=== PATIENT | male | born 1945 | race Caucasian/White ===

== ENCOUNTER 2017-02-18 21:01 | Emergency (ER) | payer OTHER ==
[2017-02-18 21:43] VITALS: BP 113/66; PULSE 90; TEMP 98.9; BMI 28.5
== END 2017-02-18 22:30 | disposition left against medical advice (07) ==
LOC: JER 21:01
DX: Z53.21 Procedure and treatment not carried out due to patient leaving prior to being seen by health care provider (principal)
CPT/HCPCS: 99283-25

== ENCOUNTER → 2017-02-18 | Emergency (ER) | payer OTHER ==
[2017-02-18 18:32] VITALS: BP 132/64; TEMP 97.5; BMI 29.5
[2017-02-18 19:02] LABS: ARTERIAL BLD GAS O2 SATURATION 85.7 % (90-98.9); ARTERIAL BLOOD GAS BASE EXCESS -0.3 meq/l (-2-2); ARTERIAL BLOOD GAS HCO3 22.7 meq/L (22-26); ARTERIAL BLOOD GAS PO2 51.4 mmHg (70-100); ARTERIAL BLOOD GAS pH 7.46 (7.35-7.45)
[2017-02-18 19:03] LABS: ALLENS TEST POSITIVE; ART PUNCT SITE LEFT RADIAL; LPM/O2% 4 LPM; PT. ON O2? yes; TYPE OF O2 nasal cannula
[2017-02-18 19:04] LABS: METHEMOGLOBIN 0.5 % (0.4-1.5)
[2017-02-18 19:08] LABS: MCH 27.8 pg (25.7-33.7); MCHC 32.4 g/dl (32.0-35.9); MEAN CELL VOLUME 85.7 fl (80-96); MEAN PLT VOLUME 8.4 fl (7.5-11.1); PLATELET COUNT 189 K/MM3 (134-434); RDW 21.7 % (11.9-15.9); WHITE BLOOD COUNT 13.4 K/mm3 (4.0-10.0)
[2017-02-18 19:13] VITALS: PULSE 84
[2017-02-18 19:23] LABS: INR 1.1 (0.82-1.09); PROTHROMBIN TIME (PATIENT) 12.1 SEC (9.98-11.88)
[2017-02-18 19:46] LABS: ALBUMIN 2.6 g/dl (3.4-5.0); ANION GAP 9 (8-16); BILIRUBIN,TOTAL 1.2 mg/dL (0.2-1.0); CALCIUM 8.6 mg/dL (8.5-10.1); CO2 26 mmol/L (21-32); CREATININE 1.3 mg/dL (0.7-1.3); GLUCOSE,RANDOM 103 mg/dL (74-106); SGOT/AST 57 U/L (15-37); SGPT/ALT 58 U/L (12-78)
[2017-02-18 19:49] LABS: ALK PHOS 152 U/L (45-117); TROPONIN I < 0.02 ng/ml (0.00-0.05)
--- NOTE | 2017-02-18 20:00 | PDOC ---
History of Present Illness - History of Present Illness Initial Comments: 02/19/17 00:11 Patient is a 71 year old male with significant medical hx of stage IV lung CA, currently undergoing chemotherapy biweekly, several transfusions in the past, who is presenting to the ED with an episode of transient generalized weakness this afternoon. Today the patient went off to do a few errands, including grocery shopping, and felt generally weak when he returned home. He was greeted by family members who state that the patient didnt want to walk up stairs or make conversation. Family member notes the patient usually takes someone to run errands with for help. After the patient returned, family members called EMS, and he states that he felt better once the ambulance arrived. Patient notes his episode of weakness lasted for approximately 5-10 minutes. The patient also endorses some right shoulder/upper back pain that has resolved. Denies any fever , chills, nausea, cough, vomiting, chest pain, diaphoresis, palpitations, vertigo, dizziness. Pt denies any current complaints. The patient is chronically on O2 at night and carries portable O2 with him at all times but sometimes is noncomplaint. Last chemo treatment was last week and reportedly a stronger dose than previous treatments. <Damaris Garner - Last Filed: 02/19/17 00:11> <Jarred Bethea - Last Filed: 02/22/17 07:42> - General Chief Complaint: Respiratory Stated Complaint: SHORTNESS OF BREATH Time Seen by Provider: 02/18/17 19:43 Past History <Damaris Garner - Last Filed: 02/19/17 00:11> - Past Medical History Cancer: Yes (lung) Other medical history: ITP - Psycho/Social/Smoking Cessation Hx Suicidal Ideation: No Smoking History: Former smoker Have you smoked in the past 12 months: No Number of Cigarettes Smoked Daily: 24 Information on smoking cessation initiated: No Hx Alcohol Use: No Drug/Substance Use Hx: No <Jarred Bethea - Last Filed: 02/22/17 07:42> - Past Medical History Allergies/Adverse Reactions: Allergies Allergy/AdvReac Type Severity Reaction Status Date / Time No Known Allergies Allergy Verified 02/18/17 19:04 Home Medications: Ambulatory Orders Danazol [Danocrine -] 100 mg PO BID 02/18/17 Docusate Sodium [Colace -] 1 tab PO DAILY 02/18/17 FENTANYL 75mcg PATCH [DURAGESIC 75mcg PATCH -] 1 each TD Q72H 02/18/17 Gabapentin [Neurontin] 100 mg PO TID 02/18/17 Oxycodone HCl 5 mg PO PRN 02/18/17 Review of Systems - Review of Systems Comments:: 02/19/17 00:12 CONSTITUTIONAL: Present: Generalized Weakness No reported: Fever, Chills, Diaphoresis, Malaise, Loss of Appetite HEENT: No reported: Rhinorrhea, Nasal Congestion, Throat Pain, Throat Swelling, Difficulty Swallowing, Mouth Swelling, Ear Pain, Eye Pain, Visual Changes CARDIOVASCULAR: No reported: Chest Pain, Syncope, Palpitations, Irregular Heart Rate, Lightheadedness, Peripheral Edema RESPIRATORY: No reported: Cough, Shortness of Breath, SOB with Exertion, Orthopnea, Wheezing , Stridor, Hemoptysis GASTROINTESTINAL: No reported: Abdominal pain, Abdominal Distension, Nausea, Vomiting, Diarrhea, Constipation, Melena, Hematochezia GENITOURINARY: No reported: Dysuria, Frequency, Urgency, Hesitancy, Flank Pain, Genital Pain MUSCULOSKELETAL: Present: Right Shoulder/Right Upper Back Pain No reported: Myalgia, Arthralgia, Joint Swelling, Neck Pain SKIN: No reported: Rash, Itching, Pallor HEMEATOLOGIC/IMMUNOLOGIC: No reported: Easy Bleeding, Easy Bruising, Lymphadenopathy, Frequent infections ENDOCRINE: No reported: Unexplained Weight Gain, Unexplained Weight Loss, Heat Intolerance , Cold Intolerance NEUROLOGIC: No reported: Headache, Focal Weakness, Paresthesias, Vertigo, Lightheadedness, Unsteady Gait, Seizure, Mental Status Changes, Incontinence PSYCHIATRIC: No reported: Anxiety, Depression <Patsy,Damaris - Last Filed: 02/19/17 00:11> *Physical Exam - Vital Signs Last Vital Signs Temp Pulse Resp BP Pulse Ox 97.5 F L 84 22 132/64 90 L 02/18/17 18:27 02/18/17 19:11 02/18/17 18:27 02/18/17 18:27 02/18/17 19:11 - Physical Exam Comments: 02/19/17 00:12 GENERAL: The patient is awake, alert, and fully oriented, Nontoxic - in no acute distress. HEAD: Normocephalic, atraumatic. EYES: extraocular movements intact, sclera anicteric, conjunctiva clear. ENT: Normal voice, Moist mucous membranes. NECK: Normal range of motion, supple LUNGS: b/l lungs clear, no rales or wheezing, no dyspnea HEART: Regular rate and rhythm, without murmur, rub or gallop. ABDOMEN: Soft, nontender, normoactive bowel sounds. No guarding, no rebound.No CVA tenderness EXTREMITIES: Normal range of motion, no edema. NEUROLOGICAL: No facial assymetry, Normal speech, PSYCH: Normal mood, normal affect. SKIN: Warm, Dry, normal turgor <Patsy,Damaris - Last Filed: 02/19/17 00:11> - Vital Signs Last Vital Signs Temp Pulse Resp BP Pulse Ox 97.5 F L 84 22 132/64 90 L 02/18/17 18:27 02/18/17 19:11 02/18/17 18:27 02/18/17 18:27 02/18/17 19:11 <Jarred Bethea - Last Filed: 02/22/17 07:42> Heart Score/ECG Review - ECG Impressions Comment:: Twelve-lead EKG was performed and reviewed by me. There is normal sinus rhythm with a normal rate. Rate of 88 The axis is normal. The intervals are normal. There is normal R wave progression There are no ST or T wave abnormalities. Impression: Normal twelve-lead EKG <Jarred Bethea - Last Filed: 02/22/17 07:42> ED Treatment Course - LABORATORY CBC & Chemistry Diagram: 02/18/17 19:00 02/18/17 19:00 - ADDITIONAL ORDERS Additional order review: Laboratory Results 02/18/17 02/18/17 02/18/17 19:00 19:00 18:50 INR 1.10 Puncture Site ABG pH ABG pCO2 at Pt Temp ABG pO2 at Pt Temp ABG HCO3 ABG O2 Sat (Measured) ABG O2 Content ABG Base Excess Miguel Test Carboxyhemoglobin 2.2 H Methemoglobin 0.5 O2 Delivery Device Oxygen Flow Rate PEEP Sodium 134 L Potassium 4.7 Chloride 99 Carbon Dioxide 26 Anion Gap 9 BUN 30 H D Creatinine 1.3 D Creat Clearance w eGFR 54.26 Random Glucose 103 Calcium 8.6 Total Bilirubin 1.2 H D AST 57 H D ALT 58 D Alkaline Phosphatase 152 H D Creatine Kinase 71 Troponin I < 0.02 B-Natriuretic Peptide 498.70 H Total Protein 7.0 Albumin 2.6 L 02/18/17 18:50 INR Puncture Site Left radial ABG pH 7.46 H ABG pCO2 at Pt Temp 32.2 L ABG pO2 at Pt Temp 51.4 L ABG HCO3 22.7 ABG O2 Sat (Measured) 85.7 L ABG O2 Content 10.3 L ABG Base Excess -0.3 Miguel Test Positive Carboxyhemoglobin Methemoglobin O2 Delivery Device nasal cannula Oxygen Flow Rate 4 lpm PEEP 0.0 Sodium Potassium Chloride Carbon Dioxide Anion Gap BUN Creatinine Creat Clearance w eGFR Random Glucose Calcium Total Bilirubin AST ALT Alkaline Phosphatase Creatine Kinase Troponin I B-Natriuretic Peptide Total Protein Albumin 02/18/17 19:00 RBC 3.29 L D MCV 85.7 MCHC 32.4 RDW 21.7 H D MPV 8.4 D Neutrophils % 79.0 Lymphocytes % 8.0 D Monocytes % 5.0 <Damaris Garner - Last Filed: 02/19/17 00:11> - LABORATORY CBC & Chemistry Diagram: 02/18/17 19:00 02/18/17 19:00 - ADDITIONAL ORDERS Additional order review: Laboratory Results 02/18/17 02/18/17 02/18/17 19:00 18:50 18:50 INR 1.10 Puncture Site Left radial ABG pH 7.46 H ABG pCO2 at Pt Temp 32.2 L ABG pO2 at Pt Temp 51.4 L ABG HCO3 22.7 ABG O2 Sat (Measured) 85.7 L ABG O2 Content 10.3 L ABG Base Excess -0.3 Miguel Test Positive Carboxyhemoglobin 2.2 H Methemoglobin 0.5 O2 Delivery Device nasal cannula Oxygen Flow Rate 4 lpm PEEP 0.0 02/18/17 19:00 RBC 3.29 L D MCV 85.7 MCHC 32.4 RDW 21.7 H D MPV 8.4 D Neutrophils % Y Lymphocytes % Y <Jarred Bethea - Last Filed: 02/22/17 07:42> Medical Decision Making - Medical Decision Making 02/18/17 19:59 71y M hx of stage 4 lung ca on chronic 02 currently getting chemo, last time was 1 week ago, presents with complaint of sob for approx 5min. pt states he was off his o2 while he was out an dabout, currently feels fine and wants to sign out AMA. refuses a workup/cxr. States he does not any workup and he will go to the urgent care over at [facility] since they know him better there. Patient is alert and oriented and acompanied by his family, and expressed that they would like to leave AGAINST MEDICAL ADVICE. I discussed with them the risks of leaving include , permanent disability, . Patient states he would like to leave because wants to go to the [facility] for further treatment. I believe that the patient understands our discussion and is capable of making an informed decision about leaving against medical advice. I also discussed with the patient that they may return at any time to complete their workup. A portion of this note was documented by scribe services under my direction. I have reviewed the details of the note, within reason, and agree with the documentation with the following case summary and management plan written by me <Jarred Bethea - Last Filed: 02/22/17 07:42> *DC/Admit/Observation/Transfer - Attestations Scribe Attestion: 02/19/17 00:13 Documentation prepared by Damaris Garner, acting as medical records administrator for Jarred Bethea MD. <Damaris Garner - Last Filed: 02/19/17 00:11> - Discharge Dispostion Admit: No <Jarred Bethea - Last Filed: 02/22/17 07:42> Diagnosis at time of Disposition: SOB (shortness of breath) - Discharge Dispostion Disposition: AGAINST MEDICAL ADVICE Condition at time of disposition: Stable - Patient Instructions Printed Discharge Instructions: DI for Shortness of Breath Additional Instructions: You are signing out against medical advice. your workup is not complete here but yo umay return at any time to complete your workup if you decide to return for evaluation. please follow up with your primary cracker off doctor. Print Language: [place]
[2017-02-18 20:10] LABS: ANISOCYTOSIS 2+; METAMYELOCYTE 1 % (0-2); PLATELET ESTIMATE ADEQUATE (NORMAL); POLYCHROMASIA 1+
[2017-02-18 20:11] LABS: TOXIC GRANULATION 1+
--- NOTE | 2017-02-19 10:33 | EKG ---
Test Reason : Blood Pressure : / mmHG Vent. Rate : 088 BPM Atrial Rate : 088 BPM P-R Int : 148 ms QRS Dur : 072 ms QT Int : 334 ms P-R-T Axes : 054 -03 032 degrees QTc Int : 404 ms NORMAL SINUS RHYTHM NORMAL ECG NO PREVIOUS ECGS AVAILABLE Confirmed by MALIK KNUTSON MD ([id number]) on 02/19/2017 10:32:47 AM Referred By: Confirmed By:MALIK KNUTSON MD
== END | disposition left against medical advice (07) ==
LOC: JER 18:20
DX: R06.02 Shortness of breath (principal); C34.90 Malignant neoplasm of unspecified part of unspecified bronchus or lung; Z92.21 Personal history of antineoplastic chemotherapy; Z87.891 Personal history of nicotine dependence
CPT/HCPCS: 36600; 71010-TC; 80053; 82375; 82550; 82803; 83050; 83880; 84484; 85025; 85610; 87040; 93005; 93010; 99282-25